=== PATIENT | female | born 1975 | race Caucasian/White ===

== ENCOUNTER 2023-08-26 08:58 | Outpatient (RCR) | payer OTHER, SELFPAY | END 2023-09-01 23:59 | LOC: NS 08:58 | PROVIDERS: Referring Provider Obstetrics & Gynecology; Visit Provider Obstetrics & Gynecology | DX: Z71.3 Dietary counseling and surveillance (principal); R73.09 Other abnormal glucose; E16.1 Other hypoglycemia; R73.01 Impaired fasting glucose; E88.810 Metabolic syndrome; G47.33 Obstructive sleep apnea (adult) (pediatric); E78.5 Hyperlipidemia, unspecified; K76.0 Fatty (change of) liver, not elsewhere classified; R53.81 Other malaise; R53.83 Other fatigue; E66.01 Morbid (severe) obesity due to excess calories; Z68.42 Body mass index [BMI] 45.0-49.9, adult | CPT/HCPCS: 97802 ==

== ENCOUNTER 2024-06-18 20:07 | Emergency (ER) | payer OTHER, SELFPAY ==
[2024-06-18 20:08] VITALS: BP 139/71; PULSE 89; RESP 16; TEMP 36.8; O2SAT 96; BMI 39.8
--- NOTE | 2024-06-18 21:01 | CT_ITS ---
INDICATION: epigastric pain EXAMINATION: CT Abdomen And Pelvis W/ Contrast Injection TECHNIQUE: Helically acquired images were obtained of the abdomen and pelvis with sagittal and coronal reconstructed images. Individualized dose optimization techniques were used for this CT. IV contrast dosage and agent: 100 mL of [id number]-[id number]. Oral contrast: None. COMPARISON: None. FINDINGS: VESSELS: No abdominal aortic aneurysm or dissection. LIVER: No evidence of a mass. No intrahepatic or extrahepatic biliary duct dilation. Diffuse decreased attenuation of the liver which may represent fatty infiltration. GALLBLADDER: No calcified stones. No evidence of cholecystitis. PANCREAS: No focal solid or cystic mass. No evidence of pancreatitis. SPLEEN: Normal. ADRENAL GLANDS: Normal. KIDNEYS AND URETERS: No urinary tract stone. No hydronephrosis or hydroureter. No significant asymmetric perinephric stranding. URINARY BLADDER: Unremarkable. BOWEL: No evidence of diverticulosis or diverticulitis. Appendix not identified. No evidence of bowel obstruction. REPRODUCTIVE ORGANS: No evidence of a pelvic mass. PERITONEUM: No intraabdominal free fluid or free air. LYMPH NODES: No pathologically enlarged mesenteric or retroperitoneal lymph nodes. ABDOMINAL WALL: No abdominal or pelvic wall hernia. BONES: No acute abnormality. LOWER CHEST: Visualized lung bases are unremarkable. CT/Abdomen/Pelvis W IV Cont ONLY IMPRESSION: No acute abnormality. Electronically Signed: Scot Greco DO at 22:09 EST ,
--- NOTE | 2024-06-18 21:01 | EKG12_ITS ---
Test Reason : DYSRHYTHMIA Blood Pressure : */* mmHG Vent. Rate : 78 BPM Atrial Rate : 78 BPM P-R Int : 174 ms QRS Dur : 94 ms QT Int : 360 ms P-R-T Axes : 40 43 23 degrees QTcB Int : 410 ms Normal sinus rhythm Low voltage QRS Borderline ECG Confirmed by DELILAH ARAUJO MD ([id number]), design editor VIOLET GOODEN ([id number]) on 06/19/2024 9:54:57 AM Referred By: Confirmed By: DELILAH ARAUJO MD
[2024-06-18] MEDS: Ketorolac 15 MG/ML Vial IV (21:25)
[2024-06-18] MEDS: Metoclopramide 10 MG/2 ML Vial IV (21:25)
[2024-06-18 21:45] LABS: Absolute Lymphocyte Count 1.89 X10^3/uL (0.83-4.51); Absolute Neutrophil Count 3.9 X10^3/uL (2.0-7.7); Basophil# 0.03 X10^3/uL; Basophil% 0.5 % (0-1); Eosinophil# 0.13 X10^3/uL; Hematocrit 41.6 % (37-47); Hemoglobin 13.7 g/dL (12.0-15.0); Lymphocyte # 1.89 X10^3/ul (0.83-4.51); Lymphocyte % 29.7 % (19-41); Mean Corp Hgb Conc 32.9 g/dL (32-36); Mean Corpuscular Hgb 30.3 pg (27.0-32.0); Mean Platelet Vol. 11.2 fl (6.2-12.0); Monocyte# 0.45 X10^3/uL; Monocyte% 7.1 % (0-10); NRBC Flagged by Analyzer 0 % (0-5); Neutrophil # 3.85 X10^3/uL (2.7-7.7); Neutrophil % 60.4 % (47-70); Platelet Count 215 K/mm3 (150-450); RBC Distribution Width SD 43.6 fl (35.1-43.9); Red Blood Count 4.52 M/mm3 (4.2-5.4); White Blood Count 6.4 K/mm3 (4.4-11.0)
[2024-06-18 21:46] LABS: Color, Urine Yellow (Yellow); Glucose, Dipstick Normal (Normal); Ketone-Dipstick Negative (Negative); Leukocyte Esterase-Dipstick Negative /ul (Negative); Nitrite-Dipstick Negative (Negative); Occult Blood-Urine Negative /ul (Negative); Protein-Dipstick 15 mg/dl (Negative); Specific Gravity, Urine 1.025 (1.002-1.030); Urine Bilirubin Dipstick Negative (Negative); Urine Clarity Clear (Clear); Urine Urobilinogen Normal (Normal)
[2024-06-18 21:58] LABS: Bacteria 1+ /hpf (None Seen); Squamous Epithelial Cells - UA 0-5 SEEN /hpf (5-10)
[2024-06-18 21:59] LABS: Mucous, Urine 2+ /hpf (<or=2+); Red Blood Cells-Urine 5-10 SEEN /hpf (0-5)
[2024-06-18 22:00] VITALS: BP 145/74; PULSE 78; RESP 16; O2SAT 98
[2024-06-18 22:00] LABS: White Blood Cells 0-5 SEEN /hpf (0-5)
[2024-06-18 22:09] LABS: ALB/GLOB Ratio 0.9 RATIO (0.9-2.4); AST(SGOT) 24 U/L (15-37); Alanine Aminotransfer ALT/SGPT 36 U/L (13-56); Albumin, Serum 3.5 g/dL (3.2-5.0); Alkaline Phosphatase 64 U/L (45-117); Anion Gap 4 (5-15); BUN 9 mg/dL (7-18); BUN/Creat Ratio 10.3 RATIO (10-20); Calcium,Total 9.4 mg/dL (8.5-10.1); Chloride 109 mmol/L (98-107); Creatinine, Serum 0.88 mg/dL (0.55-1.02); EST Glomerular Filtration Rate 73 mL/min (>60); Est Glom Filt Rate - Afr Amer 88 mL/min (>60); Estimated Creatinine Clearance 87.18 ml/min; Globulin 3.7 g/dL (2.2-4.2); Glucose 103 mg/dL (74-106); Lipase 43 U/L (13-75); Potassium 3.8 mmol/L (3.5-5.1); Protein, Total 7.2 g/dL (6.4-8.2); Sodium Level 140 mmol/L (136-145); Troponin-I HS 3 pg/mL (3.0-54.0)
--- NOTE | 2024-06-18 22:54 | EX.ED.DYSGE1 ---
HPI History of Present Illness Chief Complaint: Abd Pain Narrative Narrative: Patient is a 49-year-old female with no known significant past medical history who presented to the emergency department the chief complaint of abdominal pain. Patient states that around 12:30 AM she developed abdominal pain and nausea. She states that throughout the day her pain progressively worsened prompting her to come here for further evaluation management. She states that she has also had some intermittent nausea associated with this. Patient states that she has not taken any medication prior to arrival here. Patient denies any previous abdominal surgeries. PFSH PFSH Medical History no medical history Home Medications ?Medication ?Instructions ?Recorded ?Last Taken ?Type dicyclomine 10 mg capsule 10 mg PO TID 5 days #15 caps 06/18/24 Unknown Rx ondansetron 4 mg disintegrating 4 mg PO Q6H PRN nausea and 06/18/24 Unknown Rx tablet vomiting #20 tabs tirzepatide 7.5 mg/0.5 mL mg subcut 06/18/24 Unknown History subcutaneous pen injector (Mounjaro) Allergy/AdvReac Type Severity Reaction Status Date / Time azithromycin (From Zithromax) AdvReac Severe Nausea/Vom/ Verified 06/18/24 20:12 Diarrhea Surgical History History of carpal tunnel surgery of right wrist History of carpal tunnel surgery of left wrist History of partial hysterectomy Social History Smoking Status: Never smoker ROS ROS ED ROS Narrative Constitutional: Denies any fevers, chills, headaches, lightness, dizziness Cardiovascular: Denies chest pain or palpitations Respiratory: Denies coughing wheezing shortness of breath Abdomen: Complains of abdominal pain and nausea as noted above denies any vomiting or diarrhea : Denies any urinary symptoms Neurological: Denies any numbness, weakness, tingling Musculoskeletal: Denies back pain Skin: Denies rashes or lesions EXAM Physical Exam Narrative Exam Narrative: General: Patient lying in bed rest comfortably did not appear to be acute distress Head: Atraumatic, normocephalic Eyes: PERRL bilateral, EOMI bilateral, no conjunctival injection noted Neck: Soft, supple, trachea midline Cardiovascular: Regular rate and rhythm no murmurs gallops rubs noted Respiratory: Clear to auscultation bilaterally no rales rhonchi or wheeze noted Abdomen: Soft, nondistended, diffuse tenderness palpation no rebound or guarding on exam, bowel sounds present MS 4 Extremities: +5/5 strength noted in the bilateral upper and lower extremities, no pedal edema no exam, radial pulses +2/4 in the bilateral extremities Neurological: Patient is following commands knew that she was at [facility] years 2023 Skin: Warm, dry, intact Const Vital Signs: 06/18/24 20:08 06/18/24 22:00 Temperature 98.3 F Temperature Source Oral Pulse Rate 89 78 Respiratory Rate 16 16 Blood Pressure 139/71 H 145/74 H Blood Pressure Mean 93 97 Pulse Ox 96 98 Oxygen Delivery Method Room Air Room Air MDM MDM MDM Narrative Medical decision making narrative: Patient is a 49-year-old female who presented to the emergency department the chief complaint abdominal pain and nausea. Patient will have a workup performed here on the differential diagnose includes Melamin to viral gastroenteritis, appendicitis, pancreatitis. Once workup is obtained reviewed she will be reevaluated. Patient will be given Toradol and Reglan. Patient's CBC reviewed and showed no evidence leukocytosis white blood count normal at 6.4, hemoglobin stable 13.7, platelet count normal at 215. Patient sodium normal at 140, potassium normal at 3.8, creatinine normal at 0.88. Patient's AST and ALT were 2436 respectively. Patient's lipase normal at 43. Patient's urinalysis reviewed and showed no evidence of infection. Patient's CT abdomen pelvis with IV contrast reviewed and showed no acute abnormalities. Patient's COVID flu and RSV were negative. On reevaluation the patient she is feeling better she would like to go home at this point time. Patient be given prescriptions for Bentyl and Zofran. She is advised to follow-up with her primary care physician outpatient setting and return with worsening symptoms or other concerns. She is agreeable with this plan as well as significant other at bedside all question concerns answered she was discharged home in stable condition. Lab Data Labs: Laboratory Results - last 24 hr 06/18/24 21:34 WBC 6.4 RBC 4.52 Hgb 13.7 Hct 41.6 MCV 92.0 MCH 30.3 MCHC 32.9 RDW Std Deviation 43.6 RDW Coeff of Yenifer 13.0 Plt Count 215 MPV 11.2 Immature Gran % (Auto) 0.300 Neut % (Auto) 60.4 Lymph % (Auto) 29.7 [place] % (Auto) 7.1 Eos % (Auto) 2.0 Baso % (Auto) 0.5 Absolute Neuts (auto) 3.9 Absolute Lymphs (auto) 1.89 Nucleated RBC % 0 Sodium 140 Potassium 3.8 Chloride 109 H Carbon Dioxide 26.0 Anion Gap 4 L BUN 9 Creatinine 0.88 Estim Creat Clear Calc 87.18 Est GFR (MDRD) Af Amer 88 Est GFR (MDRD) Non-Af 73 BUN/Creatinine Ratio 10.3 Glucose 103 Calcium 9.4 Total Bilirubin 0.50 AST 24 ALT 36 Alkaline Phosphatase 64 Troponin I High Sens 3 Total Protein 7.2 Albumin 3.5 Globulin 3.7 Albumin/Globulin Ratio 0.9 Lipase 43 Urine Color Yellow Urine Clarity Clear Urine pH 5.0 Ur Specific [place] 1.025 Urine Protein 15 H Urine Glucose (UA) Normal Urine Ketones Negative Urine Occult Blood Negative Urine Nitrite Negative Urine Bilirubin Negative Urine Urobilinogen Normal Ur Leukocyte Esterase Negative Urine RBC 5-10 SEEN Urine WBC 0-5 SEEN Ur Squamous Epith Cells 0-5 SEEN Urine Bacteria 1+ Urine Mucus 2+ Radiography Diagnostic Testing: Clinical Impression(s) from Imaging Studies Abdomen/Pelvis CT 06/18/24 21:01 IMPRESSION: No acute abnormality. Electronically Signed: Scot Greco DO at 22:09 EST Reading Location ID and State: [facility] / [place] Tel , Service support , Discharge Plan Triage Chief Complaint: Abd Pain ED Provider: Yusuf Urbano Dx/Rx/DC Orders Clinical Impression: Abdominal pain Prescriptions: New ondansetron 4 mg tablet,disintegrating 4 mg PO Q6H PRN (Reason: nausea and vomiting) Qty: 20 0RF dicyclomine 10 mg capsule 10 mg PO TID 5 Days Qty: 15 0RF No Action Mounjaro 7.5 mg/0.5 mL pen injector subcut Primary Care Provider: Care Physician,No Primary Referrals: Care Physician,No Primary [Primary Care Provider] - Michelle Avendaño [facility], [[facility]] - Activity Restrictions/Additional Instructions: Follow-up with your primary care physician outpatient setting. Use prescriptions as prescribed. Return with worsening symptoms or other concerns. Print Language: Occitan Disposition Disposition: Home, Self Care
[2024-06-18 23:18] VITALS: BP 123/78; PULSE 71; RESP 18; TEMP 36.6; O2SAT 100
== END 2024-06-18 23:19 | disposition home or self-care (01) ==
PROVIDERS: Emergency Provider Emergency Medicine; Visit Provider Emergency Medicine
DX: R10.9 Unspecified abdominal pain (principal); R11.0 Nausea
CPT/HCPCS: 74177; 80053; 81001; 83690; 84484; 85025; 87631; 93005; 96374; 96375; 99283; Q9967; A4216